=== PATIENT | male | born 1950 | race Caucasian/White ===

== ENCOUNTER 2018-04-04 13:02 | Emergency (ER) | payer MEDICARE, OTHER ==
--- OUTSIDE RECORDS SUMMARY | 2018-04-04 13:14 | XMS REPORT ---
:1950 External Reference #:[id number] Author Organization [facility] Address [address] [place] [address] Phone [phone] Care Team Providers Name Role Phone Selene Santamaria MD Care Team Information Manager Commodities Unavailable Selene Santamaria MD Primary Care Physician Unavailable Payers Type Date Identification Numbers Payment Provider Subscriber Medicare Primary Policy Number: [id number] Medicare Emmanuel Zheng PayID: [id number] [address] [place] [address] [facility] Part [facility] Policy Number: [id number] [facility] Emmanuel Zheng Group Number: [id number] [address] PayID: [id number] [place] [address] Problems Date Description Provider Status Onset: 10/07/2017 Taking medication Selene Santamaria M.D. Active Onset: 10/07/2017 Hyperlipidemia Selene Santamaria M.D. Active Onset: 10/07/2017 Sciatica Selene Santamaria M.D. Active Onset: 10/07/2017 Screening for malignant neoplasm of Selene Santamaria M.D. Active prostate Onset: 10/07/2017 Screening for malignant neoplasm of Selene Santamaria M.D. Active colon Onset: 10/07/2017 Encounter for screening for nutritional Selene Santamaria M.D. Active disorder Onset: 10/30/2017 History of polyp of colon Jefferson Schuster MD Active Onset: 10/30/2017 Thoracic and lumbosacral neuritis Selene Santamaria M.D. Active Onset: 10/21/2017 Vitamin D deficiency Selene Santamaria M.D. Active Onset: 10/30/2017 Elevated blood-pressure reading without Selene Santamaria M.D. Active diagnosis of hypertension Onset: 11/25/2017 Lumbosacral stenosis Selene Santamaria M.D. Active Onset: 03/05/2018 Immunization Selene Santamaria M.D. Active Onset: 12/30/2017 Neurogenic claudication co-occurrent and Georgette Schaefer MD Active due to spinal stenosis of lumbar region Family History Date Family Member(s) Problem(s) Comments General Non Contributory Father due to Parkinson's Disease () Father No Current Problems Mother Alive BREAST CANCER Social History Type Date Description Comments Marital Status Lives With Home Environment Lives With spouse Diet Patient follows no dietary restrictions Occupation Retired Mat [employer] Work Status Retired Hand Dominance Right-handed Cigarette Use Quit 3 years ago Smokeless Tobacco Never Used Smokeless Tobacco ETOH Use Rarely consumes alcohol Recreational Drug Use Denies Drug Use Smoking Patient is a former smoker QUIT age 62 Daily Caffeine Current Caffeine User Daily Caffeine Consumes on average 2 cups of regular coffee per day Allergies, Adverse Reactions, Alerts Date Description Reaction Status Severity Comments 10/07/2017 NKDA active Medications Medication Date Status Form Strength Qnty SIG Indications Ordering Provider Atorvastatin Active Tablets 20mg 90tab 1 by mouth Hina, Calcium /0000 s every day Vilma Morton Vitamin D Active Capsules 2000Unit 2 by mouth Unknown /0000 every day Hydrocodone 11/25 Hx Tablets 5-325mg 60tab take 1 Hina, Bitartrate/Acetamin s tablet celeste Morton - every 6 M.D. 01/29 hours needed for moderate to severe pain Dulcolax 10/30 Hx Tablets 5mg 4tabs [address] joan Schuster MD - 8pm the 12/30 day before the procedure Suprep Bowel Prep 10/30 Hx Solution 17.5-3.13 1kit 06/04 Z86.010 -1.6GM/18 afternoon MD Landen - 0ML before and 07/30 1/2 in the morning of procedure. Methylprednisolone 10/30 Hx TBPK 4mg 1dose take as M54.31 pack directed Selene - M.D. 11/25 Orphenadrine 10/30 Hx Tablets 100mg 10tab 1 tab by Hina, Citrate ER 12HR s mouth Andras, - twice a M.D. 11/25 day for days Methylprednisolone 10/21 Hx TBPK 4mg 1dose take as M54.31 pack directed Vilma Morton Orphenadrine 10/07 Hx Tablets 100mg 10tab 1 tab by Hina, Citrate ER ER 12HR s mouth Andras, - twice a M.D. 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 01/29 Prednisone 0000 Hx Tablets 10mg 4 tabs for Alcantar, /0000 3 days, 3 Philip, - tabs for 3 ROTARY OPERATOR 01/29 days, tabs for 3 days, 1 tab until gone Ibuprofen 0000 Hx Tablets 2 tablets Unknown /0000 by mouth - jhonny 4-6 01/29 hours needed Aleve 0000 Hx Tablets 220mg 1 by mouth Unknown /0000 every day - as needed 01/29 Immunizations CPT Code Status Date Vaccine Lot # [id number] Given 03/05/2018 Influenza Virus Vaccine, Quadrivalent, 36 Mos+, [id number] .[id number] Vital Signs Date Vital Result Comment 03/05/2018 BP Systolic Sitting Left Arm 130 mmHg BP Diastolic Sitting Left Arm 84 mmHg Body Temperature 97.8 F Heart Rate 66 /min Respiratory Rate 16 /min Height 70 inches 5'10" Weight 203.00 lb BMI (Body Mass Index) 29.1 kg/m2 BSA (Body Surface Area) 2.10 m2 [place] body weight in kilograms 75 O2 % BldC Oximetry 96 % Ra 01/29/2018 BP Systolic 142 mmHg BP Diastolic 87 mmHg Body Temperature 98.0 F Heart Rate 72 /min Respiratory Rate 18 /min Height 70 inches 5'10" Weight 198.00 lb BMI (Body Mass Index) 28.4 kg/m2 BSA (Body Surface Area) 2.08 m2 [place] body weight in kilograms 75 O2 % BldC Oximetry 96 % 12/30/2017 BP Systolic 150 mmHg BP Diastolic 92 mmHg Body Temperature 97.1 F Heart Rate 67 /min Respiratory Rate 15 /min Height 70 inches 5'10" Weight 207.00 lb BMI (Body Mass Index) 29.7 kg/m2 BSA (Body Surface Area) 2.12 m2 [place] body weight in kilograms 75 O2 % BldC Oximetry 98 % room air Pain Level 8 12/25/2017 BP Systolic 149 mmHg BP Diastolic 103 mmHg Body Temperature 97.5 F Heart Rate 95 /min Respiratory Rate 18 /min Height 70 inches 5'10" Weight 206.50 lb BMI (Body Mass Index) 29.6 kg/m2 BSA (Body Surface Area) 2.12 m2 [place] body weight in kilograms 75 O2 % BldC Oximetry 99 % 11/25/2017 BP Systolic 133 mmHg BP Diastolic 81 mmHg Body Temperature 98.1 F Heart Rate 77 /min Respiratory Rate 18 /min Height 70 inches 5'10" Weight 202.50 lb BMI (Body Mass Index) 29.1 kg/m2 BSA (Body Surface Area) 2.10 m2 [place] body weight in kilograms 75 O2 % BldC Oximetry 97 % 10/30/2017 BP Systolic 152 mmHg BP Diastolic 81 mmHg Body Temperature 97.6 F Heart Rate 63 /min Respiratory Rate 20 /min Height 70 inches 5'10" Weight 203.50 lb BMI (Body Mass Index) 29.2 kg/m2 BSA (Body Surface Area) 2.10 m2 [place] body weight in kilograms 75 O2 % BldC Oximetry 99 % 10/30/2017 BP Systolic Sitting Left Arm 124 mmHg BP Diastolic Sitting Left Arm 78 mmHg Heart Rate 66 /min Respiratory Rate 16 /min Height 70 inches 5'10" Weight 205.00 lb BMI (Body Mass Index) 29.4 kg/m2 BSA (Body Surface Area) 2.11 m2 [place] body weight in kilograms 75 10/21/2017 BP Systolic Sitting Left Arm 131 mmHg BP Diastolic Sitting Left Arm 69 mmHg Body Temperature 96.1 F Heart Rate 56 /min Respiratory Rate 16 /min Height 70 inches 5'10" Weight 203.00 lb BMI (Body Mass Index) 29.1 kg/m2 BSA (Body Surface Area) 2.10 m2 [place] body weight in kilograms 75 O2 % BldC Oximetry 100 % Ra 10/07/2017 BP Systolic 128 mmHg BP Diastolic 74 mmHg Heart Rate 71 /min Respiratory Rate 16 /min Height 70 inches 5'10" Weight 208.00 lb BMI (Body Mass Index) 29.8 kg/m2 BSA (Body Surface Area) 2.12 m2 [place] body weight in kilograms 75 O2 % BldC Oximetry 99 % Results Test Date Test Result H/L Range Note Comprehensive Metabolic Panel 03/13/2018 Glucose 92 mg/dL 74-106 BUN 18 mg/dL 7-18 Creatinine 1.2 mg/dL 0.6-1.3 Glom Filtration Rate, Estimate >60 mL/min >60 If >60 mL/min >60 1 BUN/Creat 15.0 ratio Sodium 144 mmol/L 136-145 Potassium 4.6 mmol/L 3.5-5.1 Chloride 107 mmol/L 98-107 Carbon Dioxide 29 mmol/L 21-32 Anion Gap 8 mEq/L 8-16 Calcium 9.1 mg/dL 8.5-10.1 Total Protein 7.1 g/dL 6.4-8.2 Albumin 4.0 g/dL 3.4-5.0 Globulin 3.1 g/dL 1.9-4.3 Alb/Glob 1.3 ratio Bilirubin,Total 0.6 mg/dL 0.2-1.0 Sgot/Ast 19 U/L 15-37 SGPT/Alt 36 U/L 12-78 Alkaline Phosphatase 56 U/L 45-117 CBC W/Automated Diff 03/13/2018 White Blood Count 7.4 K/uL 3.4-10.5 Red Blood Count 4.89 M/uL 4.20-5.80 Hemoglobin 15.9 gm/dL 12.8-17.0 Hematocrit 45.6 % 38.0-48.0 Mean Cell Volume 93.3 fl 80.0-96.0 Mean Corpuscular HGB 32.5 pg 27.0-33.0 Mean Corpuscular HGB Conc 34.9 g/dL 31.7-36.0 Platelet Count 219 K/uL 155-360 Red Cell Distri Width SD 43.7 fl 36-51 Red Cell Distri Width %CV 13.2 % 11.6-15.8 Mean Platelet Volume 10.1 fL 6.6-10.6 Neut% 71.8 % 33.0-73.0 Lymph % 16.2 % Low 20.0-42.0 [place] % 10.8 % High 0.0-10.0 Eo% 0.8 % 0.0-6.6 Bas% 0.4 % 0.0-1.1 Neut# 5.30 K/uL 1.8-7.0 Lymph # 1.20 K/uL 1.0-4.0 [place] # 0.80 K/uL 0.0-0.8 Eos # 0.06 K/uL 0.0-0.5 Baso # 0.03 K/uL 0.0-0.1 LDL Cholesterol Profile 03/13/2018 Cholesterol 195 mg/dL <200 2 Triglycerides 120 mg/dL <150 3 HDL Cholesterol 56 mg/dL >40 4 LDL-Cholesterol 115 mg/dL < 100 5 Laboratory test 03/13/2018 Vitamin D,25-Hydroxy 47.4 ng/mL 30.0-100.0 6 finding Laboratory test 03/05/2018 Vitamin D,25-Hydroxy <pending> finding Laboratory test 10/07/2017 Vitamin D,25-Hydroxy 25.7 ng/mL Low 30.0-100.0 7, 8 finding Vitamin B12 10/07/2017 Vitamin B12 503 pg/mL 193-986 7 Reflex add FT3? Y 7 Reflex add FT4? Y 7 Prostate Specific Antigen 10/07/2017 PSA ([place]) 1.73 ng/mL < 4.0 7 , 9 Reflex add FT3? Y 7 Reflex add FT4? Y 7 TSH Reflex FT4 And/Or FT3 10/07/2017 Thyroid Stim Hormone 1.18 uIU/mL 0.30-4.20 7 Reflex add FT3? Y 7 Reflex add FT4? Y 7 Triglycerides 10/07/2017 Triglycerides 121 mg/dL <150 7, 10 Reflex add FT3? Y 7 Reflex add FT4? Y 7 Direct LDL Cholesterol 10/07/2017 LDL Chol. (Direct) 141 mg/dL High 0-99 7 Comment (SEE NOTE) 7, 11 HDL Cholesterol 10/07/2017 HDL Cholesterol 62 mg/dL >40 7, 12 Reflex add FT3? Y 7 Reflex add FT4? Y 7 Ua RFX Micro & Culture II 10/07/2017 Urine Color DK YELLOW Yellow 7 Urine Clarity CLOUDY Clear 7 Urine Glucose - Dipstick NEGATIVE mg/dL Negative 7 Urine Bilirubin - Dipstick NEGATIVE Negative 7 Urine Ketone NEGATIVE mg/dL Negative 7 Urine Specific [place] >=1.030 1.010-1.030 7 Urine Blood NEGATIVE Negative 7 Urine PH 5.5 Low 6.5-7.5 7 Urine Protein - Dipstick NEGATIVE mg/dL Negative 7 Urine Urobilinogen - Dipstick 0.2 E.U./dL 0.2-1.0 7 Urine Nitrite - Dipstick NEGATIVE Negative 7 Urine Leuk Esterase NEGATIVE Negative 7 Source: URINE, CLEAN CAT <SEE NOTE> 7, 13 Magnesium 10/07/2017 Magnesium 1.9 mg/dL 1.8-2.4 7 Reflex add FT3? Y 7 Reflex add FT4? Y 7 Comprehensive Metabolic Panel 10/07/2017 Glucose 87 mg/dL 74-106 7 BUN 17 mg/dL 7-18 7 Creatinine 1.0 mg/dL 0.6-1.3 7 Glom Filtration Rate, Estimate >60 mL/min >60 7 If >60 mL/min >60 7, 14 BUN/Creat 17.0 ratio 7 Sodium 142 mmol/L 136-145 7 Potassium 4.4 mmol/L 3.5-5.1 7 Chloride 109 mmol/L High 98-107 7 Carbon Dioxide 28 mmol/L 21-32 7 Anion Gap 5 mEq/L Low 8-16 7 Calcium 8.5 mg/dL 8.5-10.1 7 Total Protein 6.8 g/dL 6.4-8.2 7 Albumin 3.8 g/dL 3.4-5.0 7 Globulin 3.0 g/dL 1.9-4.3 7 Alb/Glob 1.3 ratio 7 Bilirubin,Total 0.5 mg/dL 0.2-1.0 7 Sgot/Ast 31 U/L 15-37 7 SGPT/Alt 47 U/L 12-78 7 Alkaline Phosphatase 58 U/L 45-117 7 Reflex add FT3? Y 7 Reflex add FT4? Y 7 CBS W/Automated Diff 10/07/2017 White Blood Count 5.4 K/uL 3.4-10.5 7 Red Blood Count 4.91 M/uL 4.20-5.80 7 Hemoglobin 15.9 gm/dL 12.8-17.0 7 Hematocrit 45.4 % 38.0-48.0 7 Mean Cell Volume 92.5 fl 80.0-96.0 7 Mean Corpuscular HGB 32.4 pg 27.0-33.0 7 Mean Corpuscular HGB Conc 35.0 g/dL 31.7-36.0 7 Platelet Count 217 K/uL 155-360 7 Red Cell Distri Width SD 43.5 fl 36-51 7 Red Cell Distri Width %CV 13.1 % 11.6-15.8 7 Mean Platelet Volume 10.2 fL 6.6-10.6 7 Neut% 71.9 % 33.0-73.0 7 Lymph % 15.9 % Low 20.0-42.0 7 [place] % 10.2 % High 0.0-10.0 7 Eo% 1.3 % 0.0-6.6 7 Bas% 0.7 % 0.0-1.1 7 Neut# 3.88 K/uL 1.8-7.0 7 Lymph # 0.86 K/uL Low 1.0-4.0 7 [place] # 0.55 K/uL 0.0-0.8 7 Eos # 0.07 K/uL 0.0-0.5 7 Baso # 0.04 K/uL 0.0-0.1 7 1 Note: Persistent reduction for 3 months or more in an eGFR <60 mL/min/1.73 m2 defines CKD. Patients with eGFR values >/=60 mL/min/1.73 m2 may also have CKD if evidence of persistent proteinuria is present. The original MDRD equation for estimated GFR is not valid for patients less than 18 years of age. Additional information may be found at www.kdoqi.org. 2 Reference Guidelines*: Desirable: ........... < 200 mg/dL Borderline High: ..... 200-239 mg/dL High: ................ >=240 mg/dL * The National Cholesterol Education Program (NCEP) 3 Reference Guidelines*: Normal: ............. < 150 mg/dL Borderline High: .... 150-199 mg/dL High: ............... 200-499 mg/dL Very High: .......... > 500 mg/dL * Source: National Cholesterol Education Program (NCEP) 4 Reference Guidelines*: Low HDL: ..... < 40 mg/dL Normal: ..... 40-60 mg/dL Desirable: ... > 60 mg/dL *The National Cholesterol Education Program(NCEP) 5 Reference Guidelines*: Optimal:........... <100 mg/dL Near Optimal....... 100-129 mg/dL Borderline High.... 130-159 mg/dL High............... 160-189 mg/dL Very High.......... >=190 mg/dL * Source: National Cholesterol Education Program (NCEP) 6 Vitamin D deficiency has been defined by the [place] [employer] and an Endocrine Society practice guideline as a level of serum 25-OH vitamin D less than 20 ng/mL (1,2). The Endocrine Society went on to further define vitamin D insufficiency as a level between 21 and 29 ng/mL (2). 1. IOM ([employer]). 2010. Dietary reference intakes for calcium and D. [place]: The National Academies Press. 2. Jonathan MF, Feliberto [place], Michael BALLARD, et al. Evaluation, treatment, and prevention of vitamin D deficiency: an Endocrine Society clinical practice guideline. JCEM. 2010; 96(7):1911-30. Performed at: RN - [facility] [address] [id number] Nail Cutter: Celeste Crespo MD, Phone: [phone] J82.705 Q57.8 8 Vitamin D deficiency has been defined by the [place] [employer] and an Endocrine Society practice guideline as a level of serum 25-OH vitamin D less than 20 ng/mL (1,2). The Endocrine Society went on to further define vitamin D insufficiency as a level between 21 and 29 ng/mL (2). 1. IOM ([employer]). 2010. Dietary reference intakes for calcium and D. [place]: The National Academies Press. 2. Jonatahn MF, Feliberto NC, Michael BALLARD, et al. Evaluation, treatment, and prevention of vitamin D deficiency: an Endocrine Society clinical practice guideline. JCEM. 2010; 96(1):1911-30. Performed at: - [facility] [id number] Nail Cutter: Celeste Crespo MD, Phone: [phone] THIS ASSAY IS NOT INTENDED A CANCER SCREENING TEST The concentration of PSA in a given specimen, determined with assays from different manufacturers, can vary due to differences in assay methods and reagent specificity. Values obtained from different assay methods cannot be used interchangeably. Method: CiraNovata Chemiluminescent immunoassay. 10 Reference Guidelines*: Normal: ............. < 150 mg/dL Borderline High: .... 150-199 mg/dL High: ............... 200-499 mg/dL Very High: .......... > 500 mg/dL * Source: National Cholesterol Education Program (NCEP) 11 Performed at: - [facility] [address] [id number] Nail Cutter: Celeste Crespo MD, Phone: [phone] Reference Guidelines*: Low HDL: ..... < 40 mg/dL Normal: ..... 40-60 mg/dL Desirable: ... > 60 mg/dL *The National Cholesterol Education Program(NCEP) 13 URINE, CLEAN CATCH 14 Note: Persistent reduction for 3 months or more in an eGFR <60 mL/min/1.73 m2 defines CKD. Patients with eGFR values >/=60 mL/min/1.73 m2 may also have CKD if evidence of persistent proteinuria is present. The original MDRD equation for estimated GFR is not valid for patients less than 18 years of age. Additional information may be found at www.kdoqi.org. Procedures Date CPT Code Description Status Comment 06/03/2011 Colonoscopy Completed [place] polyps removed, was due in 5 years Encounters Type Date Location Provider CPT E/M Dx Office Visit 03/05/2018 11:20a Primary Care Office Selene Santamaria M.D. 69796 M48.07 E55.9 Z79.899 E78.5 Z23 Office Visit 01/29/2018 1:00p Primary Care Office Selene Santamaria M.D. 87834 M48.07 M54.17 Office Visit 12/30/2017 8:30a [place] [address] M54.31 M48.062 Office Visit 12/25/2017 9:20a Primary Care Office Selene Santamaria M.D. 72947 M54.31 R03.0 Office Visit 11/25/2017 2:40p Primary Care Office Selene Santamaria M.D. 78015 E55.9 E78.5 M54.17 M48.07 Z79.899 Office Visit 10/30/2017 2:00p Primary Care Office Selene Santamaria M.D. 31899 M54.17 R03.0 Z79.899 Office Visit 10/30/2017 10:00[place] [address] Z86.010 Office Visit 10/21/2017 8:40a Primary Care Office Selene Santamaria M.D. 41064 E78.5 M54.31 R03.0 Z12.11 E55.9 Z79.899 Office Visit 10/07/2017 10:00a Primary Care Office Selene Santamaria M.D. 17101 E78.5 M54.31 Z12.11 Z12.5 Z13.21 Z79.899 Plan of Care 03/05/2018 - Selene Santamaria M.D.M48.07 Spinal stenosis, lumbosacral clsbjyC92.9 Vitamin D deficiency, unspecifiedFollow up:lab work today. call for results in 5 days. 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
[2018-04-04 15:10] VITALS: BP 124/68
[2018-04-04] MEDS ORDERED: Dexamethasone IV* 4 MG/ML 1 ML (4 MG) PO ONE (15:36)
--- NOTE | 2018-04-04 15:36 | UC ---
UC General HPI - HPI Summary HPI Summary: "BRONCHITIS" PT C/O 5 DAY HX CHEST CONGESTION, COUGH, SORE THROAT AND LARYNGITIS. DENIES FEVER, SOB, WHEEZING AND CHEST PAIN. - History of Current Complaint Chief Complaint: UCGeneralIllness Stated Complaint: ST, CONGESTION Time Seen by Provider: 04/04/18 15:29 Hx Obtained From: Patient Onset/Duration: Gradual Onset Timing: Constant Pain Intensity: 0 Aggravating: NOTHING Associated Signs & Symptoms: Positive: Cough. Negative: Chest Pain, Fever, SOB , Wheezing - Allergy/Home Medications Allergies/Adverse Reactions: Allergies Allergy/AdvReac Type Severity Reaction Status Date / Time No Known Allergies Allergy Verified 04/04/18 15:03 PMH/Surg Hx/FS Hx/Imm Hx Endocrine History: Dyslipidemia - Surgical History Surgical History: Yes Surgery Procedure, Year, and Place: right side carpal tunnel--2013 - Family History Known Family History: Positive: None - Social History Occupation: Retired Alcohol Use: None Substance Use Type: None Smoking Status (MU): Never Smoked Tobacco - Immunization History Most Recent Influenza Vaccination: 02/2014 Vaccination Up to Date: Yes Review of Systems Constitutional: Negative Skin: Negative Eyes: Negative ENT: Sore Throat Respiratory: Cough Cardiovascular: Negative Gastrointestinal: Negative Genitourinary: Negative Motor: Negative Neurovascular: Negative Musculoskeletal: Negative Neurological: Negative Psychological: Negative Is Patient Immunocompromised?: No All Other Systems Reviewed And Are Negative: Yes Physical Exam Triage Information Reviewed: Yes Appearance: Well-Appearing Vital Signs: Initial Vital Signs Temp 97.4 F 04/04/18 15:04 Pulse 73 04/04/18 15:04 Resp 18 04/04/18 15:04 BP 124/68 04/04/18 15:04 Pulse Ox 98 04/04/18 15:04 Vital Signs Reviewed: Yes Eyes: Positive: Conjunctiva Clear ENT: Positive: Pharyngeal erythema, TMs normal, Hoarse voice, Uvula midline. Negative: Nasal congestion, Nasal drainage, Tonsillar swelling, Tonsillar exudate, Trismus, Muffled voice Neck: Positive: Supple, Nontender, No Lymphadenopathy Respiratory: Positive: Lungs clear, No respiratory distress, Decreased breath sounds. Negative: Crackles, Rhonchi, Wheezing Cardiovascular: Positive: RRR, No Murmur Abdomen Description: Positive: Nontender, No Organomegaly, Soft Bowel Sounds: Positive: Present Musculoskeletal: Positive: ROM Intact Neurological: Positive: Alert Psychological: Positive: Age Appropriate Behavior Skin Exam: Normal Diagnostics - Laboratory Diagnostic Studies Completed/Ordered: RAPID STREP=neg Course/Dx - Course Course Of Treatment: rapid strep=neg. - Differential Dx - Multi-Symptom Provider Diagnoses: PHARYNGITIS. LARYNGITIS. BRONCHITIS Discharge - Sign-Out/Discharge Documenting (check all that apply): Patient Departure All imaging exams completed and their final reports reviewed: No Studies - Discharge Plan Condition: Stable Disposition: HOME Prescriptions: Albuterol HFA INHALER* [Ventolin HFA Inhaler*] 2 puff INH Q6H #1 mdi Patient Education Materials: Laryngitis (ED), Acute Bronchitis (ED), Pharyngitis (ED) Referrals: Hina RODRIGUEZ,Selene [Primary Care Provider] - 5 Days - Billing Disposition and Condition Condition: STABLE Disposition: Home
== END 2018-04-04 16:03 | disposition home or self-care (01) ==
LOC: UCCORT 13:02
DX: J02.9 Acute pharyngitis, unspecified (principal); J04.0 Acute laryngitis; J40 Bronchitis, not specified as acute or chronic
CPT/HCPCS: 87651; 99212; G0463; J1100